=== PATIENT | female | born 1945 | race African-American/Black ===

== ENCOUNTER 2021-04-01 12:39 | Emergency (ER) | payer BC, OTHER ==
[~2021-04-01] VITALS: Ht 167.6 cm; Wt 81.6 kg
[2021-04-01 12:49] VITALS: BP 163/102
--- NOTE | 2021-04-01 12:53 | NUR ---
PT AMBULATED TO ER BED 9.
[2021-04-01] MEDS ORDERED: MECLIZINE 25 MG TAB PO ONE (13:30)
--- NOTE | 2021-04-01 13:37 | NUR ---
RN HOSPITAL AT PT BEDSIDE.
--- NOTE | 2021-04-01 13:48 | NUR ---
75 Y/O FEMALE C/O DIZZINESS AND WEAKNESS X 3DAYS. PT STATES SHE "FEELS SHE IS SPINNING AND ROOM IS STILL". PT HAD BP 163/102 DURING TRIAGE, MADE AWARE. PT GOT 3RD SHOT COVID VACCINE: PFIZER 03/27/21. DENIES N/V, DENIES FEVER/CHILLS. PMH: HTN, ANXIETY, THYROIDECTOMY NKA
[2021-04-01 13:52] LABS: BASOPHILS # (AUTO) 0.1 K/uL (0.00-0.22); BASOPHILS % (AUTO) 1.5 % (0.0-2.0); EOSINOPHILS # (AUTO) 0.1 K/uL (0-0.4); HEMATOCRIT 34.9 % (36-48); HEMOGLOBIN 11.7 g/dL (12.0-16.0); LYMPHOCYTES # (AUTO) 1.9 K/uL (2.5-16.5); LYMPHOCYTES % (AUTO) 30.4 % (20.5-51.1); MEAN CORPUSCULAR HEMOGLOBIN 27 pg (27-31); MEAN CORPUSCULAR HGB CONC 34 g/dL (33-37); MONOCYTES # (AUTO) 0.4 K/uL (0.8-1.0); MONOCYTES % (AUTO) 6.3 % (1.7-9.3); NEUTROPHILS # (AUTO) 3.8 K/uL (1.8-7.7); NEUTROPHILS % (AUTO) 60.8 % (42.2-75.2); PLATELET COUNT (AUTO) 220 K/uL (140-450); RED BLOOD CELL COUNT(AUTO) 4.25 MIL/uL (4.20-5.40); WHITE BLOOD COUNT (AUTO) 6.2 K/uL (4.8-10.8)
[2021-04-01 14:00] LABS: ANION GAP 10.8 (8-16); ASPARTATE AMINOTRANSFERASE 15 U/L (15-37); CARBON DIOXIDE 28.4 mmol/L (21-32); CHLORIDE 101 mmol/L (98-107); GLUCOSE 105 mg/dL (74-106); POTASSIUM 4.2 mmol/L (3.5-5.1); SODIUM SERUM 136 mmol/L (136-145); TOTAL BILIRUBIN 0.3 mg/dL (0.0-1.0); UREA NITROGEN, BLOOD 16 mg/dL (7-18)
[2021-04-01] MEDS ORDERED: MECL-231 PO (14:31)
[2021-04-01 14:47] VITALS: BP 123/63
--- NOTE | 2021-04-01 14:47 | NUR ---
Patient discharged with v/s stable. Written and verbal after care instructions given and explained. Patient alert, oriented and verbalized understanding of instructions. Ambulatory with steady gait. All questions addressed prior to discharge. ID band removed. Patient advised to follow up with PMD. Rx of ANTIVERT given. Patient educated on indication of medication including possible reaction and side effects. Opportunity to ask questions provided and answered.
== END 2021-04-01 14:47 | disposition home or self-care (01) ==
LOC: MED 12:39
DX: R42 Dizziness and giddiness (principal); I10 Essential (primary) hypertension; Z79.899 Other long term (current) drug therapy; Z98.890 Other specified postprocedural states
CPT/HCPCS: 36415; 80053; 85025; 93005; 99284; J8597